=== PATIENT | female | born 1960 | race American Indian/Alaskan Native ===

== ENCOUNTER 2017-06-22 18:20 | Emergency (ER) | payer SELFPAY ==
[2017-06-22 19:20] LABS: Bilirubin,Urine NEG (Negative); Blood,Urine MOD (Negative); Color,Urine Yellow (Yellow); Mucus,Urine FEW /HPF; Protein,Urine <15 mg/dL mg/dL (Negative); Urobilinogen,Urine < 2.0 mg/dL (<2.0)
--- NOTE | 2017-06-22 21:33 | Emergency Department Report ---
ED Female HPI - General Chief complaint: Urogenital-Female Stated complaint: BLOOD IN URINE Source: patient Mode of arrival: Ambulatory Limitations: No Limitations - History of Present Illness Initial comments: 57-year-old -[place] female comes in concern for having blood in her urine. Patient reports that she had a physical yesterday and her urine tested positive for blood. Patient denies any dysuria. She denies any urinary urgency or frequency. Patient reports that she has a wart on her left hand been there for 2-3 months. She has no past medical history currently takes no medication has no known drug allergies. -: days(s) (1) Are you Now?: No - Related Data Sexually active: Yes Previous Rx's Medication Instructions Recorded Last Taken Type Ibuprofen [Motrin 600 MG tab] 600 mg PO Q8H PRN #30 tablet 02/22/14 Unknown Rx Nitrofurantoin Monohyd/M-Cryst 100 mg PO BID #20 capsule 06/22/17 Unknown Rx [Macrobid 100 mg Capsule] Allergies Allergy/AdvReac Type Severity Reaction Status Date / Time nickel AdvReac Rash Verified 06/22/17 18:23 ED Review of Systems ROS: Stated complaint: BLOOD IN URINE Other details as noted in HPI Constitutional: denies: chills, fever Eyes: denies: eye pain, eye discharge, vision change ENT: denies: ear pain, throat pain Respiratory: denies: cough, shortness of breath, wheezing Cardiovascular: denies: chest pain, palpitations Endocrine: no symptoms reported Gastrointestinal: denies: abdominal pain, nausea, diarrhea Genitourinary: denies: urgency, dysuria, discharge Musculoskeletal: denies: back pain, joint swelling, arthralgia Skin: lesions (left hand). denies: rash Neurological: denies: headache, weakness, paresthesias Psychiatric: denies: anxiety, depression Hematological/Lymphatic: denies: easy bleeding, easy bruising ED Past Medical Hx - Past Medical History Previous Medical History?: No - Surgical History Additional Surgical History: CYST AND OVARY REMOVED - Social History Smoking Status: Current Some Day Smoker - Medications Home Medications: Home Medications Medication Instructions Recorded Confirmed Last Taken Type Ibuprofen [Motrin 600 MG tab] 600 mg PO Q8H PRN #30 tablet 02/22/14 Unknown Rx Nitrofurantoin Monohyd/M-Cryst 100 mg PO BID #20 capsule 06/22/17 Unknown Rx [Macrobid 100 mg Capsule] ED Physical Exam - General Limitations: No Limitations General appearance: alert, in no apparent distress - Head Head exam: Present: atraumatic, normocephalic - Eye Eye exam: Present: normal appearance - ENT ENT exam: Present: mucous membranes moist - Neck Neck exam: Present: normal inspection - Respiratory Respiratory exam: Present: normal lung sounds bilaterally. Absent: respiratory distress - Cardiovascular Cardiovascular Exam: Present: regular rate, normal rhythm. Absent: systolic murmur, diastolic murmur, rubs, gallop - GI/Abdominal GI/Abdominal exam: Present: soft, normal bowel sounds - Extremities Exam Extremities exam: Present: normal inspection - Back Exam Back exam: Present: normal inspection - Neurological Exam Neurological exam: Present: alert, oriented X3 - Psychiatric Psychiatric exam: Present: normal affect, normal mood - Skin Skin exam: Present: warm, dry, intact, normal color, other (left hand lesion that is dry, dark base non tender,). Absent: rash ED Course Vital Signs 06/22/17 18:23 Temperature 98.3 F Pulse Rate 80 Respiratory 18 Rate Blood Pressure 175/103 O2 Sat by Pulse 100 Oximetry ED Medical Decision Making - Medical Decision Making ED course: Urinalysis showed trace of leukocytes and a moderate amount of blood. Discussed the patient we will refer her to urologist. Discussed patient that I we will treat her for urinary tract infection and is important for her to follow up with the urologist to follow up on hematuria. Chronic lesion on left hand dorsum side for patient to [facility] for further evaluation. Critical care attestation.: If time is entered above; I have spent that time in minutes in the direct care of this critically ill patient, excluding procedure time. ED Disposition Clinical Impression: UTI (urinary tract infection) Qualifiers: Urinary tract infection type: site unspecified Hematuria presence: with hematuria Qualified Code(s): N39.0 - Urinary tract infection, site not specified ; R31.9 - Hematuria, unspecified Disposition: DC-01 TO HOME OR SELFCARE Is pt being admited?: No Does the pt Need Aspirin: No Condition: Stable Instructions: Urinary Tract Infection in Women (ED) Additional Instructions: His complete antibiotics as prescribed. Please follow up with urology and follow-up with [facility]. Prescriptions: Nitrofurantoin Monohyd/M-Cryst [Macrobid 100 mg Capsule] 100 mg PO BID #20 capsule Referrals: ERIK ALEX MD [Primary Care Provider] - 3-5 Days TOMAS ENCINAS MD [Staff Physician] - 3-5 Days RYAN GARCIA MD [Staff Physician] - 3-5 Days Forms: Accompanied Note, Work/School Release Form(ED)
[2017-06-22 22:40] VITALS: BP 140/93
== END 2017-06-22 21:40 | disposition home or self-care (01) ==
LOC: ED 18:20
DX: N39.0 Urinary tract infection, site not specified (principal); F17.200 Nicotine dependence, unspecified, uncomplicated; Z88.8 Allergy status to other drugs, medicaments and biological substances
CPT/HCPCS: 81001; 87086; 99283

== ENCOUNTER 2017-09-11 11:10 | Emergency (ER) | payer SELFPAY ==
[2017-09-11 11:30] VITALS: BP 161/95
--- NOTE | 2017-09-11 13:07 | Emergency Department Report ---
Minor Respiratory - HPI Chief Complaint: Upper Respiratory Infection Stated Complaint: COUGH Time Seen by Provider: 09/11/17 12:57 Duration: 1 week Pain Location: Chest Severity: moderate Minor Respiratory: Yes Rhinorrhea, Yes Able to Tolerate Fluids, Yes Cough (min productive), No Sore Throat, No Ear Pain, No Sick Contacts, No Hemoptysis, No Chest Pain, No Shortness of Breath, No Fever ED Review of Systems ROS: Stated complaint: COUGH Other details as noted in HPI Comment: All other systems reviewed and negative ED Past Medical Hx - Past Medical History Previous Medical History?: No - Surgical History Additional Surgical History: CYST AND OVARY REMOVED - Social History Smoking Status: Former Smoker Substance Use Type: None - Medications Home Medications: Home Medications Medication Instructions Recorded Confirmed Last Taken Type Ibuprofen [Motrin 600 MG tab] 600 mg PO Q8H PRN #30 tablet 02/22/14 Unknown Rx Nitrofurantoin Monohyd/M-Cryst 100 mg PO BID #20 capsule 06/22/17 Unknown Rx [Macrobid 100 mg Capsule] ALBUTEROL Inhaler [ProAir HFA 2 puff IH QID PRN #1 inhalation 09/11/17 Unknown Rx Inhaler] Azithromycin [Zithromax] 250 mg PO DAILY #6 tablet 09/11/17 Unknown Rx Phenazopyridine [Pyridium] 100 mg PO TID 2 Days tab 09/11/17 Unknown Rx predniSONE [Deltasone] 20 mg PO QDAY #5 tab 09/11/17 Unknown Rx Minor Respiratory Exam - Exam General: Vital signs noted. No distress. Alert and acting appropriately. HEENT: Yes Moist Mucous Membranes, No Pharyngeal Erythema, No Pharyngeal Exudates, No Rhinorrhea, No Conjuctival Injection, No Frontal Tenderness, No Maxillary Tenderness Ear: Neither TM Bulge, Neither TM Erythema, Neither EAC Pain, Neither EAC Discharge Neck: Yes Supple, No Adenopathy Lungs: Yes Good Air Exchange, Yes Cough, No Wheezes, No Ronchi, No Stridor, No Labored Respirations, No Retractions, No Use of Accessory Muscles, No Other Abnormal Lung Sounds Heart: Yes Regular, No Murmur Abdomen: Yes Normal Bowel Sounds, No Tenderness, No Peritoneal Signs Skin: No Rash, No Edema Neurologic: Alert and oriented, no deficits. Musculoskeletal: Unremarkable. ED Course Vital Signs 09/11/17 11:27 Temperature 98.6 F Pulse Rate 75 Respiratory 18 Rate Blood Pressure 161/95 O2 Sat by Pulse 98 Oximetry ED Medical Decision Making - Medical Decision Making Patient is a smoker and will be treated for smokers bronchitis and be discharged home meds for symptomatic relief. Critical care attestation.: If time is entered above; I have spent that time in minutes in the direct care of this critically ill patient, excluding procedure time. ED Disposition Clinical Impression: Acute bronchitis Qualifiers: Bronchitis organism: unspecified organism Qualified Code(s): J20.9 - Acute bronchitis, unspecified Disposition: DC-01 TO HOME OR SELFCARE Is pt being admited?: No Does the pt Need Aspirin: No Condition: Stable Instructions: Acute Bronchitis (ED) Referrals: PRIMARY CARE, [Primary Care Provider] - 3-5 Days Forms: Work/School Release Form(ED)
== END 2017-09-11 13:30 | disposition home or self-care (01) ==
LOC: ED 11:10
DX: J20.9 Acute bronchitis, unspecified (principal); Z87.891 Personal history of nicotine dependence
CPT/HCPCS: 99282

== ENCOUNTER 2018-06-05 15:37 | Emergency (ER) | payer OTHER ==
[2018-06-05 15:56] VITALS: BP 172/89
--- NOTE | 2018-06-05 16:04 | Emergency Department Report ---
Blank Doc - Documentation Documentation: This is a 58-year-old female that presents with concerns about UTI. 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 PAtient stated she does not have any symptoms. Denies any urinary symptoms. Denies any complaints. This initial assessment/diagnostic orders/clinical plan/treatment(s) is/are subject to change based on patient's health status, clinical progression and re- assessment by fellow clinical providers in the ED. Further treatment and workup at subsequent clinical providers discretion. Patient/guardians urged not to elope from the ED as their condition may be serious if not clinically assessed and managed. Initial orders include: 1- Patient sent to [facility] for further evaluation and treatment 2- UA
[2018-06-05 17:00] LABS: Bilirubin,Urine NEG (Negative); Blood,Urine MOD (Negative); Color,Urine Yellow (Yellow); Mucus,Urine FEW /HPF; Protein,Urine <15 mg/dL mg/dL (Negative); Urobilinogen,Urine < 2.0 mg/dL (<2.0)
--- NOTE | 2018-06-05 20:57 | Emergency Department Report ---
ED Female HPI - General Chief complaint: Urogenital-Female Stated complaint: BLOOD IN URINE/CHECK UP Time Seen by Provider: 06/05/18 16:02 Source: patient Mode of arrival: Ambulatory Limitations: No Limitations - History of Present Illness Initial comments: This is a 58-year-old female nontoxic, well nourished in appearance, no acute signs of distress presents to the ED with c/o of hematuria. 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 Patient denies any visualization of hematuria. Patient denies any urinary symptoms. Patient otherwise states she is healthy with no complaints or symptoms. Patient denies any back pain, fever, chills, nausea, vomiting, chest pain, front of breath, headache or stiff neck. Patient gets the allergies to nickel but denies any drug allergies. Denies any past medical history. MD Complaint: other (hematuria) -: week(s) (6) Severity scale (0 -10): 0 Improves with: none Worsens with: none Associated Symptoms: hematuria. denies: vaginal discharge, vaginal bleeding, abdominal pain, nausea/vomiting, fever/chills, headaches, loss of appetite, dysuria, rash, seizure, shortness of breath, syncope, weakness - Related Data Previous Rx's Medication Instructions Recorded Last Taken Type Ibuprofen [Motrin 600 MG tab] 600 mg PO Q8H PRN #30 tablet 02/22/14 Unknown Rx Nitrofurantoin Monohyd/M-Cryst 100 mg PO BID #20 capsule 06/22/17 Unknown Rx [Macrobid 100 mg Capsule] ALBUTEROL Inhaler (OR & NICU) 2 puff IH QID PRN #1 inhalation 09/11/17 Unknown Rx [ProAir HFA Inhaler] Azithromycin [Zithromax] 250 mg PO DAILY #6 tablet 09/11/17 Unknown Rx Benzonatate [Tessalon Perle] 100 mg PO BID #6 capsule 09/11/17 Unknown Rx predniSONE [Deltasone] 20 mg PO QDAY #5 tab 09/11/17 Unknown Rx Allergies Allergy/AdvReac Type Severity Reaction Status Date / Time nickel AdvReac Rash Verified 06/22/17 18:23 ED Review of Systems ROS: Stated complaint: BLOOD IN URINE/CHECK UP Other details as noted in HPI Constitutional: denies: chills, fever Eyes: denies: eye pain, eye discharge, vision change ENT: denies: ear pain, throat pain Respiratory: denies: cough, shortness of breath, wheezing Cardiovascular: denies: chest pain, palpitations Endocrine: no symptoms reported Gastrointestinal: denies: abdominal pain, nausea, diarrhea Genitourinary: hematuria. denies: urgency, dysuria, discharge Musculoskeletal: denies: back pain, joint swelling, arthralgia Skin: denies: rash, lesions Neurological: denies: headache, weakness, paresthesias Psychiatric: denies: anxiety, depression Hematological/Lymphatic: denies: easy bleeding, easy bruising ED Past Medical Hx - Past Medical History Previous Medical History?: No - Surgical History Additional Surgical History: CYST AND OVARY REMOVED - Social History Smoking Status: Never Smoker Substance Use Type: None - Medications Home Medications: Home Medications Medication Instructions Recorded Confirmed Last Taken Type Ibuprofen [Motrin 600 MG tab] 600 mg PO Q8H PRN #30 tablet 02/22/14 Unknown Rx Nitrofurantoin Monohyd/M-Cryst 100 mg PO BID #20 capsule 06/22/17 Unknown Rx [Macrobid 100 mg Capsule] ALBUTEROL Inhaler (OR & NICU) 2 puff IH QID PRN #1 inhalation 09/11/17 Unknown Rx [ProAir HFA Inhaler] Azithromycin [Zithromax] 250 mg PO DAILY #6 tablet 09/11/17 Unknown Rx Benzonatate [Tessalon Perle] 100 mg PO BID #6 capsule 09/11/17 Unknown Rx predniSONE [Deltasone] 20 mg PO QDAY #5 tab 09/11/17 Unknown Rx ED Physical Exam - General Limitations: No Limitations General appearance: alert, in no apparent distress - Head Head exam: Present: atraumatic, normocephalic - Eye Eye exam: Present: normal appearance - Neck Neck exam: Present: normal inspection, full ROM - GI/Abdominal GI/Abdominal exam: Present: soft, normal bowel sounds. Absent: distended, tenderness, guarding, rebound, rigid, diminished bowel sounds - Extremities Exam Extremities exam: Present: normal inspection, full ROM - Back Exam Back exam: Present: normal inspection, full ROM. Absent: tenderness, CVA tenderness (R), CVA tenderness (L), muscle spasm, paraspinal tenderness, vertebral tenderness, rash noted - Neurological Exam Neurological exam: Present: alert, oriented X3 - Psychiatric Psychiatric exam: Present: normal affect, normal mood - Skin Skin exam: Present: warm, dry, intact, normal color. Absent: rash ED Course Vital Signs 06/05/18 15:54 Temperature 98.2 F Pulse Rate 73 Respiratory 16 Rate Blood Pressure 172/89 O2 Sat by Pulse 99 Oximetry - Reevaluation(s) Reevaluation #1: 06/05/18 21:05 Patient is speaking in full sentences with no signs of distress noted. ED Medical Decision Making - Medical Decision Making This is a 58-year-old female that presents with hematuria. Patient is stable and was examined by me. UA obtained. Patient does not have any CVA tenderness. No signs or symptoms of pyelonephritis. Patient was instructed to Follow-up with a primary care doctor in 3-5 days or if symptoms worsen and continue return to emergency room as soon as possible. At time of discharge, the patient does not seem toxic or ill in appearance. No acute signs of distress noted. Patient agrees to discharge treatment plan of care. No further questions noted by the patient. Critical care attestation.: If time is entered above; I have spent that time in minutes in the direct care of this critically ill patient, excluding procedure time. ED Disposition Clinical Impression: Hematuria Qualifiers: Hematuria type: unspecified type Qualified Code(s): R31.9 - Hematuria, unspecified Disposition: DC-01 TO HOME OR SELFCARE Is pt being admited?: No Does the pt Need Aspirin: No Condition: Stable Instructions: Acute Hematuria (ED) Additional Instructions: Follow-up with a primary care/urologist doctor in 3-5 days or if symptoms worsen and continue return to emergency room as soon as possible. Referrals: RAMO VERA MD [Primary Care Provider] - 3-5 Days JLUITA HAYS MD [Referring] - 3-5 Days MILAD WEINSTEIN MD [Staff Physician] - 3-5 Days DANIELA FITZPATRICK MD [Staff Physician] - 3-5 Days [facility] [Outside] - 3-5 Days [facility] [Outside] - 3-5 Days
== END 2018-06-05 21:10 | disposition home or self-care (01) ==
LOC: ED 15:37
DX: R31.9 Hematuria, unspecified (principal); Z91.048 Other nonmedicinal substance allergy status
CPT/HCPCS: 81001

== ENCOUNTER 2021-09-26 16:27 | Emergency (ER) | payer OTHER ==
[2021-09-26 16:38] VITALS: BP 150/84
--- NOTE | 2021-09-26 18:51 | Emergency Department Report ---
ED General Adult HPI - General Chief complaint: Eye Problems Stated complaint: RT EYE INFECTED/LEFT LEG PAIN Time Seen by Provider: 09/26/21 16:44 Source: patient Mode of arrival: Ambulatory Limitations: No Limitations - History of Present Illness Initial comments: 61-year-old female that presents to the emergency department with her infection and skin problem. Patient reports about 2 days ago she had a bug fly in her eye and was embedded there for about 8 hours by the time she got home and remove the bug she noticed her eye has been itching, teary, with drainage causing it matte up the morning. She has been using some unknown eyedrops from the [employer] without improvement for also complaining of skin itching, states she has dermatitis and usually prescribed some steroid cream which seems to resolve the problem . Otherwise no fever, no cough cold congestion, no URI symptoms, no blurry vision, patient's wears glasses at baseline to see an planning director. -: Gradual Severity scale (0 -10): 3 Associated Symptoms: denies: fever/chills, shortness of breath, syncope, weakness - Related Data Previous Rx's Medication Instructions Recorded Last Taken Type Ibuprofen [Motrin 600 MG tab] 600 mg PO Q8H PRN #30 tablet 02/22/14 Unknown Rx Nitrofurantoin Monohyd/M-Cryst 100 mg PO BID #20 capsule 06/22/17 Unknown Rx [Macrobid 100 mg Capsule] Albuterol Mdi (or & Nicu Only) 2 puff IH QID PRN #1 inhalation 09/11/17 Unknown Rx [ProAir HFA Inhaler] Azithromycin [Zithromax] 250 mg PO DAILY #6 tablet 09/11/17 Unknown Rx Benzonatate [Tessalon Perle] 100 mg PO BID #6 capsule 09/11/17 Unknown Rx Azelastine HCl [Azelastine HCl 1 drop OD BID PRN #5 ml 09/26/21 Unknown Rx 0.05%] Erythromycin [Erythromycin Ophth 10 applic OP Q6H 5 Days #1 tube 09/26/21 Unknown Rx Oint] Triamcinolone 0.5% [Kenalog 0.5% 1 applic TP TID #1 tube 09/26/21 Unknown Rx CREAM] predniSONE [Deltasone] 20 mg PO QDAY #5 tab 09/26/21 Unknown Rx Allergies Allergy/AdvReac Type Severity Reaction Status Date / Time nickel AdvReac Rash Verified 06/22/17 18:23 ED Review of Systems ROS: Stated complaint: RT EYE INFECTED/LEFT LEG PAIN Other details as noted in HPI Comment: All other systems reviewed and negative Constitutional: denies: fever, malaise Eyes: eye pain, eye discharge ENT: denies: ear pain, throat pain Respiratory: denies: cough, orthopnea Cardiovascular: denies: chest pain, palpitations Endocrine: denies: excessive sweating, intolerance to cold Gastrointestinal: denies: abdominal pain, nausea, vomiting Musculoskeletal: denies: back pain Skin: rash, lesions, pruritus Neurological: denies: headache, weakness, paresthesias ED Past Medical Hx - Past Medical History Previous Medical History?: Yes Additional medical history: left leg dermatits - Surgical History Past Surgical History?: Yes Additional Surgical History: CYST AND OVARY REMOVED - Social History Smoking Status: Never Smoker Substance Use Type: None - Medications Home Medications: Home Medications Medication Instructions Recorded Confirmed Last Taken Type Ibuprofen [Motrin 600 MG tab] 600 mg PO Q8H PRN #30 tablet 02/22/14 Unknown Rx Nitrofurantoin Monohyd/M-Cryst 100 mg PO BID #20 capsule 06/22/17 Unknown Rx [Macrobid 100 mg Capsule] Albuterol Mdi (or & Nicu Only) 2 puff IH QID PRN #1 inhalation 09/11/17 Unknown Rx [ProAir HFA Inhaler] Azithromycin [Zithromax] 250 mg PO DAILY #6 tablet 09/11/17 Unknown Rx Benzonatate [Tessalon Perle] 100 mg PO BID #6 capsule 09/11/17 Unknown Rx Azelastine HCl [Azelastine HCl 1 drop OD BID PRN #5 ml 09/26/21 Unknown Rx 0.05%] Erythromycin [Erythromycin Ophth 10 applic OP Q6H 5 Days #1 tube 09/26/21 Unknown Rx Oint] Triamcinolone 0.5% [Kenalog 0.5% 1 applic TP TID #1 tube 09/26/21 Unknown Rx CREAM] predniSONE [Deltasone] 20 mg PO QDAY #5 tab 09/26/21 Unknown Rx ED Physical Exam - General Limitations: No Limitations General appearance: alert, in no apparent distress - Head Head exam: Present: atraumatic - Eye Eye exam: Present: other (Conjunctival erythema, with mild periorbital swelling. No injection, no chemosis, hyphema). Absent: conjunctival injection Pupils: Present: normal accommodation. Absent: unequal (Visual acuity 20/40 bilaterally, 20/60 in the right eye, 28 in the left eye, without her glasses) - ENT ENT exam: Present: normal exam, normal orophraynx. Absent: mucous membranes dry - Neck Neck exam: Absent: normal inspection - Respiratory Respiratory exam: Present: normal lung sounds bilaterally. Absent: respiratory distress, wheezes - Cardiovascular Cardiovascular Exam: Present: regular rate, normal heart sounds - GI/Abdominal GI/Abdominal exam: Present: soft. Absent: distended - Back Exam Back exam: Present: normal inspection, full ROM - Neurological Exam Neurological exam: Present: alert, oriented X3, CN II-XII intact, normal gait. Absent: abnormal gait, motor sensory deficit - Skin Skin exam: Present: warm, dry, other (Patient has diffuse areas of lichenified skin with hyperpigmentation.) ED Course Vital Signs 09/26/21 16:37 Temperature 98.2 F Pulse Rate 68 Respiratory 20 Rate Blood Pressure 150/84 [Right] O2 Sat by Pulse 98 Oximetry ED Medical Decision Making - Medical Decision Making Vital signs are stable nontoxic-appearing visual acuity-performed, no foreign body in the eye no visual changes, rest of her symptoms can be followed up outpatient. Discharge home to see an planning director as well as a construction equipment mechanic for her skin condition. Prescriptions for some erythromycin ointment with some azelastine eyedrops, also prescribed some triamcinolone topical ointment for her dermatitis consistent with eczema. Discussed ED findings with patient as well as plan for follow-up with understanding at the time of discharge she remained stable nontoxic-appearing with stable vitals ambulating steadily. Critical care attestation.: If time is entered above; I have spent that time in minutes in the direct care of this critically ill patient, excluding procedure time. ED Disposition Clinical Impression: Conjunctivitis, right eye, Atopic dermatitis Disposition: 01 HOME / SELF CARE / HOMELESS Is pt being admited?: No Does the pt Need Aspirin: No Condition: Stable Instructions: Atopic Dermatitis, How to Use Eye Drops and Eye Ointments, Chemical Conjunctivitis, Adult Prescriptions: Azelastine HCl [Azelastine HCl 0.05%] 1 drop OD BID PRN #5 ml PRN Reason: itching eye predniSONE [Deltasone] 20 mg PO QDAY #5 tab Erythromycin [Erythromycin Ophth Oint] 10 applic OP Q6H 5 Days #1 tube Triamcinolone 0.5% [Kenalog 0.5% CREAM] 1 applic TP TID #1 tube
== END 2021-09-26 19:36 | disposition home or self-care (01) ==
LOC: ED 16:27
DX: H10.31 Unspecified acute conjunctivitis, right eye (principal); L20.9 Atopic dermatitis, unspecified; Z88.8 Allergy status to other drugs, medicaments and biological substances
CPT/HCPCS: 99282